=== PATIENT | male | born 1935 | race Caucasian/White ===

== ENCOUNTER 2016-08-11 09:41 | Inpatient (IN) | payer MEDICARE, OTHER ==
[2016-08-11] MEDS ORDERED: Sodium Chloride 0.9% 10 ML Syringe FLUSH PRN (10:02)
[2016-08-11] MEDS: Sodium Chloride 0.9% 2,000 ML IV SCH ×2 (10:11→11:15)
[2016-08-11] MEDS ORDERED: Levofloxacin/Dextrose 5%-Water 750 MG in Premix Bag 1 BAG IV ONE (11:27)
--- NOTE | 2016-08-11 11:48 | CT ---
Head CT Technique: Multiple axial sections through the brain were obtained. Intravenous contrast was not utilized. Comparison: No previous study. Findings: Ventricles along with basal cisterns and sulci over the convexities are moderately prominent. Diminished density noted within the periventricular and subcortical white matter as well as basal ganglia compatible with small vessel ischemic demyelination change. Small white matter infarct is noted within the left frontal region. No other abnormal parenchymal densities are seen. No evidence of intracranial hemorrhage. No midline shift or mass effect is seen. No discrete calvarial abnormality is seen. Soft tissue density is seen within a hypoplastic right mastoid sinus which I suspect is most likely chronic. Visualized paranasal sinuses are clear. Impression: 1. Senescent change as noted above. 2. Soft tissue density within a hypoplastic right mastoid sinus most likely chronic. 3. No acute intracranial abnormality is appreciated. Diagnostic code #2
--- NOTE | 2016-08-11 12:03 | CR ---
Chest: Two views of the chest were obtained. Comparison: No previous chest x-ray. Heart size is normal. Mild tortuosity of the thoracic aorta is seen. Lungs are clear but hyperinflated. Mild pectus excavatum deformity is present. Bony structures are otherwise unremarkable. Impression: 1. Probable emphysematous change. Nothing acute is seen. 2. Other incidental findings. Diagnostic code #2
[2016-08-11] MEDS ORDERED: Oseltamivir 75 MG Cap PO ONE (13:02)
[2016-08-11] MEDS ORDERED: ZINC OXIDE TOP PRN (13:52)
[2016-08-11] MEDS ORDERED: METHYLCELLULOSE PO PRN (13:52)
[2016-08-11] MEDS ORDERED: MENTHOL TOP PRN (13:52)
[2016-08-11] MEDS ORDERED: Bisacodyl 10 MG Supp RECTAL PRN (13:52)
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
[2016-08-11] MEDS: Sodium Chloride 0.9% 1,000 ML IV SCH (15:38)
[2016-08-11] MEDS ORDERED: Ibuprofen 600 MG Tab PO PRN (17:08)
[2016-08-11] MEDS ORDERED: Albuterol/Ipratropium 3.0-0.5 MG/3 ML Neb Soln NEB PRN (17:20)
[2016-08-11] MEDS: Carbidopa/Levodopa 25-100 MG Tab PO SCH ×2 (17:22→20:19)
[2016-08-11] MEDS: Oseltamivir 75 MG Cap PO SCH (20:19)
[2016-08-12] MEDS: Sodium Chloride 0.9% 1,000 ML IV SCH ×2 (04:33→18:08)
[2016-08-12] MEDS ORDERED: Magnesium Sulfate/Water 2 GM in Premix Bag 1 BAG IV ONE (07:30)
[2016-08-12] MEDS: Enoxaparin 40 MG/0.4 ML Syringe SUBCUT SCH (09:21)
[2016-08-12] MEDS: Carbidopa/Levodopa 25-100 MG Tab PO SCH ×4 (09:21→22:04)
[2016-08-12] MEDS: Oseltamivir 75 MG Cap PO SCH ×2 (09:22→22:05)
--- NOTE | 2016-08-12 13:01 | CR ---
Chest: Portable view of the chest was obtained. Comparison: Previous chest x-ray of 08/11/16. Heart size is normal. Tortuous thoracic aorta is seen. Lungs are clear with no acute infiltrates. Bony structures are grossly intact. Impression: 1. Nothing acute is appreciated on portable chest x-ray. Diagnostic code #2
--- NOTE | 2016-08-12 13:11 | US ---
Bilateral lower extremity deep venous ultrasound: Duplex and color flow imaging was obtained of the right and left common femoral, superficial femoral, popliteal, posterior tibial and peroneal veins. Normal phasic flow, augmentation and compression. Popliteal cyst noted on the left side measuring 2.3 cm. Lymph node noted within the left groin which has a normal ultrasound appearance. Impression: 1. No findings of deep venous thrombosis within either the right or left lower extremity. 2. Small popliteal cyst on the left side. Diagnostic code #2
[2016-08-12] MEDS ORDERED: Azithromycin 500 MG in Sodium Chloride 0.9% 250 ML IV SCH ×2 (14:00→15:30)
[2016-08-12] MEDS ORDERED: cefTRIAXone 1 GM in Sodium Chloride 0.9% 100 ML IV SCH (15:00)
[2016-08-12] MEDS ORDERED: METHYLCELLULOSE PO PRN (15:07)
[2016-08-12] MEDS ORDERED: Carbidopa/Levodopa 25-100 MG Tab PO SCH (21:00)
--- NOTE | 2016-08-13 08:27 | PCM.DCSUM1 ---
<Jigna Watson - Last Filed: 08/13/16 08:27> Discharge Summary - Hospital Course Free Text/Narrative:: The patient presents with a fever, hypotension, generalized weakness, and cough from [facility]. This all started a few days ago. The [facility] also reports he is not as active or alert as he normally is. He has a fever of 101.4. He has a cough but he says he has a chronic cough. He has no chest pain, shortness of breath, abdominal pain, nausea, vomiting or diarrhea. He has no dysuria. He has no headache. He has Parkinson's disease and that is why he is in the pen[facility]. Hospitalist service was consulted for further eval and admission for fever of unknown origin. - Discharge Data Discharge Date: 08/13/16 (admit date 08/11/16) Discharge Disposition: DC/Tfer to [facility] Condition: Good - Patient Summary/Data Operative Procedure(s) Performed: None Complications: None Consults: Consultations 08/11/16 13:36 Consult to Speech Language Pathology [DRAMA DIRECTOR Evaluation and Treatment] [CONS] Routine 08/11/16 13:37 Consult to Occupational Therapy [OT Evaluation and Treatment] [CONS] Routine Consult to Physical Therapy [PT Evaluation and Treatment] [CONS] Routine Labs Pending at D/C: None Recommended Follow-up Testing/Procedures: None Planned Operative Procedure(s) after DC: None Hospital Course: Patient was admitted for further workup of FUO. Negative findings and workup as follows: CXR, UA, flu, respiratory panel negative, mycoplasma, strep pneumonia. Negative urine culture and blood cultures. MRSA screening was positive however. He was treated prophylactically with tamiflu and zithromax. He was hydrated with IVF. He had an excellent response. He has been afebrile for the past 48 hours, strength is returned. He is ambulatory in the hallways with walker and stand by assist. He is anxious for dc home to [facility] today. He will be discharged on tamiflu and zithromax, no other medication changes, with follow up with PCP, Dr. Alvarez recommended in 5-[address] Alvarez will be called with discharge update today. - Patient Instructions Diet: Usual Diet as Tolerated (honey thick liquids), Drink 8-10+ Glasses/Day Activity: As Tolerated (with walker and assist; PT/OT/ST on discharge) Driving: Do Not Drive Showering/Bathing: May Shower Notify Provider of: Fever, Increased Pain, Nausea and/or Vomiting - Discharge Plan Prescriptions/Med Rec: Azithromycin [Zithromax] 250 mg PO Q24H #5 adv Oseltamivir Phosphate [IJD: Tamiflu] 75 mg PO BID #8 capsule Home Medications: Home Meds Carbidopa/Levodopa [Sinemet 25-100 mg] 2 tab PO QID 05/24/16 [History] Methylcellulose [Citrucel] 1 tbsp PO DAILY PRN 05/24/16 [History] Bisacodyl [Dulcolax] 1 dose RECTAL DAILY PRN 08/11/16 [History] Menthol/Zinc Oxide [Zinc-Oxyde Plus Ointment] 1 applic TOP BID PRN 08/11/16 [ History] Azithromycin [Zithromax] 250 mg PO Q24H #5 adv 08/13/16 [Rx] Oseltamivir Phosphate [IJD: Tamiflu] 75 mg PO BID #8 capsule 08/13/16 [Rx] Patient Handouts: Fever, Adult, [id number] Forms: ED Department Discharge Referrals: Dave Alvarez MD [Primary Care Provider] - - Discharge Summary/Plan Comment DC Time >30 min.: Yes (40 min) - General Info Date of Service: 08/13/16 Admission Dx/Problem (Free Text: Admission Diagnosis/Problem Admission Diagnosis/Problem Fever of unknown origin Arthur is seen this morning, doing very well. He has been afebrile for the past 48 hours; no known source of fever has been found; negative flu, negative mycoplasma, strep pneumo, negative CXR, negative UA, Lungs are clear this morning, satting >90% on RA. He is up ambulatory in the hallways with walker and assist. He is anxious to return to [facility] today. Functional Status: Reports: pain controlled, tolerating diet, ambulating, urinating. Denies: new symptoms - Review of Systems General: Reports: no symptoms HEENT: Reports: no symptoms Pulmonary: Reports: no symptoms, cough (minimal to no cough). Denies: shortness of breath, pleuritic chest pain, wheezing Cardiovascular: Reports: no symptoms. Denies: chest pain, palpitations, dyspnea on exertion Gastrointestinal: Reports: No symptoms. Denies: Abdominal pain Genitourinary: Reports: no symptoms. Denies: dysuria, frequency Musculoskeletal: Reports: no symptoms Skin: Reports: no symptoms Neurological: Reports: no symptoms, other (stiffness- baseline due to Parkinsons disease) Psychiatric: Reports: no symptoms - Patient Data Vitals - Most Recent: Last Vital Signs Temp 97.9 F 08/13/16 02:58 Pulse 60 08/13/16 02:58 Resp 14 08/13/16 02:58 BP 142/71 H 08/13/16 02:59 Pulse Ox 99 08/13/16 02:58 Weight - Most Recent: 68.447 kg I&O - Last 24 hours: Intake & Output 08/12/16 08/13/16 08/13/16 22:59 06:59 14:59 Intake Total 1078 1813 Output Total 500 Balance 578 1813 Lab Results - Last 24 hrs: Laboratory Results - last 24 hr 08/12/16 08/13/16 08/13/16 Range/Units 10:55 05:08 05:08 WBC 3.11 L (4.23-9.07) K/mm3 RBC 3.93 L (4.63-6.08) M/mm3 Hgb 12.0 L (13.7-17.5) gm/L Hct 36.6 L (40.1-51.0) % MCV 93.1 H (79.0-92.2) fl MCH 30.5 (25.7-32.2) pg MCHC 32.8 (32.2-35.5) g/dl RDW Std Deviation 44.3 H (35.1-43.9) fL Plt Count 101 L (163-337) K/mm3 MPV 11.9 (9.4-12.3) fl Neut % (Auto) 59.3 (34.0-67.9) % Lymph % (Auto) 24.4 (21.8-53.1) % Creek % (Auto) 12.5 H (5.3-12.2) % Eos % (Auto) 3.5 (0.8-7.0) Baso % (Auto) 0.3 (0.1-1.2) % Neut # 1.84 (1.78-5.38) K/mm3 Lymph # 0.76 L (1.32-3.57) K/mm3 Creek # 0.39 (0.30-0.82) K/mm3 Eos # 0.11 (0.04-0.54) K/mm3 Baso # 0.01 (0.01-0.08) K/mm3 D-Dimer, Quantitative 0.46 (0.19-0.59) mg/L Sodium 139 (136-145) mEq/L Potassium 3.8 (3.5-5.1) mEq/L Chloride 105 (98-107) mEq/L Carbon Dioxide 28 (21-32) mEq/L Anion Gap 9.8 (5-15) BUN 19 H (7-18) mg/dL Creatinine 0.7 (0.7-1.3) mg/dL Est Cr Clr Drug Dosing 77.41 mL/min Estimated GFR (MDRD) > 60 (>60) mL/min BUN/Creatinine Ratio 27.1 H (14-18) Glucose 82 (74-106) mg/dL Calcium 8.7 (8.5-10.1) mg/dL Magnesium 1.9 (1.8-2.4) mg/dl FARZAD Results - Last 24 hrs: Microbiology 08/11/16 15:40 Respiratory Virus Panel (PCR) (FARZAD) - Final Nasopharyngeal Swab 08/12/16 12:45 Streptococcus pneumoniae Antigen (M - Final Urine - Bladder 08/11/16 15:40 MRSA Surveillance Culture - Final Nasal/Axilla/Groin (Mrsa) Staphylococcus Aureus Med Orders - Current: Current Medications Albuterol/Ipratropium (Duoneb 3.0-0.5 Mg/3 Ml) 3 ml NEB QID PRN PRN Reason: Shortness of Breath Bisacodyl (Dulcolax) 10 mg RECTAL DAILY PRN PRN Reason: Constipation Calamine/Phenol (Calmoseptine) 0 gm TOP BID PRN PRN Reason: Rash Carbidopa/Levodopa (Sinemet 25-100 Mg) 2 tab PO QID [facility] Last Admin: 08/12/16 22:04 Dose: 2 tab Enoxaparin Sodium (Lovenox) 40 mg SUBCUT DAILY [facility] Last Admin: 08/12/16 09:21 Dose: 40 mg Sodium Chloride (Normal Saline) 1,000 mls @ 75 mls/hr IV ASDIRECTED [facility] Last Admin: 08/12/16 18:08 Dose: 75 mls/hr Ceftriaxone Sodium 1 gm/ (Sodium Chloride) 100 mls @ 200 mls/hr IV Q24H [facility] Last Admin: 08/12/16 14:50 Dose: 200 mls/hr Azithromycin 500 mg/ Sodium (Chloride) 250 mls @ 250 mls/hr IV Q24H [facility] Last Admin: 08/12/16 15:51 Dose: 250 mls/hr Ibuprofen (Motrin) 600 mg PO Q6H PRN PRN Reason: Fever Last Admin: 08/11/16 17:22 Dose: 600 mg Oseltamivir Phosphate (Tamiflu) 75 mg PO BID [facility] Stop: 08/16/16 12:00 Last Admin: 08/12/16 22:05 Dose: 75 mg Methylcellulose 907 (Gm) 0 each PO DAILY PRN PRN Reason: Constipation Saccharomyces Boulardii (Florastor) 500 mg PO DAILY [facility] Sodium Chloride (Saline Flush) 10 ml FLUSH ASDIRECTED PRN PRN Reason: Keep Vein Open Last Admin: 08/11/16 10:13 Dose: 10 ml Discontinued Medications Carbidopa/Levodopa (Sinemet 25-100 Mg) 2 tab PO QID [facility] Sodium Chloride (Normal Saline) 2,000 mls @ 1,000 mls/hr IV .BOLUS [facility] Last Admin: 08/11/16 11:15 Dose: 1,000 mls/hr Levofloxacin/Dextrose 750 mg/ (Premix) 150 mls @ 100 mls/hr IV ONETIME ONE Stop: 08/11/16 12:56 Last Admin: 08/11/16 11:46 Dose: 100 mls/hr Magnesium Sulfate 2 gm/ Premix 50 mls @ 25 mls/hr IV ONETIME ONE Stop: 08/12/16 09:29 Last Admin: 08/12/16 09:20 Dose: 25 mls/hr Azithromycin 500 mg/ Sodium (Chloride) 250 mls @ 250 mls/hr IV Q24H [facility] Last Admin: 08/12/16 14:36 Dose: Not Given Oseltamivir Phosphate (Tamiflu) 75 mg PO ONETIME ONE Stop: 08/11/16 13:03 Last Admin: 08/11/16 13:28 Dose: 75 mg Methylcellulose 907 (Gm) 0 each PO BID PRN PRN Reason: Constipation - Exam Quality Assessment: Reports: DVT prophylaxis General: Reports: alert, oriented, cooperative, no acute distress HEENT: Reports: Pupils equal, Pupils reactive, EOMI, Mucous membr. moist/pink Neck: Reports: supple Lungs: Reports: Clear to auscultation, Normal respiratory effort, Decreased breath sounds (to bases; no adventitous sounds) Cardiovascular: Reports: regular rate, regular rhythm, no murmurs Abdomen: Reports: bowel sounds present, soft, no tenderness, no distension (Male) Exam: Deferred Rectal (Males) Exam: Deferred Back Exam: Reports: normal inspection Extremities: Reports: no edema, no calf tenderness Skin: Reports: warm, dry, intact Psy/Mental Status: Reports: alert, normal affect, normal mood *Q Meaningful Use (DIS) - VTE *Q VTE Criteria *Q: - Stroke *Q Stroke Criteria *Q: - AMI *Q AMI Criteria *Q: <Dominique Shea - Last Filed: 08/13/16 15:37> Discharge Summary - Hospital Course Free Text/Narrative:: Empiric treatment for URI, bronchitis and Influenza; dc meds Tamiflu and Zithromax. - Discharge Diagnosis/Problem(s) (1) Fever of unknown origin SNOMED Code(s): 2319452 ICD Code: R50.9 - FEVER, UNSPECIFIED Status: Acute (2) Constipation SNOMED Code(s): 90552556 ICD Code: K59.00 - CONSTIPATION, UNSPECIFIED Status: Acute Qualifiers: Constipation type: other constipation type Qualified Code(s): K59.09 - Other constipation (3) Volume depletion SNOMED Code(s): 62281913 ICD Code: E86.9 - VOLUME DEPLETION, UNSPECIFIED Status: Acute - Patient Summary/Data Consults: Consultations 08/11/16 13:36 Consult to Speech Language Pathology [DRAMA DIRECTOR Evaluation and Treatment] [CONS] Routine 08/11/16 13:37 Consult to Occupational Therapy [OT Evaluation and Treatment] [CONS] Routine Consult to Physical Therapy [PT Evaluation and Treatment] [CONS] Routine - Patient Data Vitals - Most Recent: Last Vital Signs Temp 36.4 C 08/13/16 08:21 Pulse 55 L 08/13/16 08:21 Resp 14 08/13/16 08:21 BP 150/70 H 08/13/16 08:21 Pulse Ox 98 08/13/16 08:21 I&O - Last 24 hours: Intake & Output 08/13/16 08/13/16 08/13/16 06:59 14:59 22:59 Intake Total 1813 Balance 1813 Lab Results - Last 24 hrs: Laboratory Results - last 24 hr 08/13/16 08/13/16 Range/Units 05:08 05:08 WBC 3.11 L (4.23-9.07) K/mm3 RBC 3.93 L (4.63-6.08) M/mm3 Hgb 12.0 L (13.7-17.5) gm/L Hct 36.6 L (40.1-51.0) % MCV 93.1 H (79.0-92.2) fl MCH 30.5 (25.7-32.2) pg MCHC 32.8 (32.2-35.5) g/dl RDW Std Deviation 44.3 H (35.1-43.9) fL Plt Count 101 L (163-337) K/mm3 MPV 11.9 (9.4-12.3) fl Neut % (Auto) 59.3 (34.0-67.9) % Lymph % (Auto) 24.4 (21.8-53.1) % Creek % (Auto) 12.5 H (5.3-12.2) % Eos % (Auto) 3.5 (0.8-7.0) Baso % (Auto) 0.3 (0.1-1.2) % Neut # 1.84 (1.78-5.38) K/mm3 Lymph # 0.76 L (1.32-3.57) K/mm3 Creek # 0.39 (0.30-0.82) K/mm3 Eos # 0.11 (0.04-0.54) K/mm3 Baso # 0.01 (0.01-0.08) K/mm3 Sodium 139 (136-145) mEq/L Potassium 3.8 (3.5-5.1) mEq/L Chloride 105 (98-107) mEq/L Carbon Dioxide 28 (21-32) mEq/L Anion Gap 9.8 (5-15) BUN 19 H (7-18) mg/dL Creatinine 0.7 (0.7-1.3) mg/dL Est Cr Clr Drug Dosing 77.41 mL/min Estimated GFR (MDRD) > 60 (>60) mL/min BUN/Creatinine Ratio 27.1 H (14-18) Glucose 82 (74-106) mg/dL Calcium 8.7 (8.5-10.1) mg/dL Magnesium 1.9 (1.8-2.4) mg/dl FARZAD Results - Last 24 hrs: Microbiology 08/11/16 15:40 Respiratory Virus Panel (PCR) ([facility]) - Final Nasopharyngeal Swab 08/12/16 12:45 Streptococcus pneumoniae Antigen (M - Final Urine - Bladder 08/11/16 15:40 MRSA Surveillance Culture - Final Nasal/Axilla/Groin (Mrsa) Staphylococcus Aureus Med Orders - Current: Current Medications Discontinued Medications Albuterol/Ipratropium (Duoneb 3.0-0.5 Mg/3 Ml) 3 ml NEB QID PRN PRN Reason: Shortness of Breath Bisacodyl (Dulcolax) 10 mg RECTAL DAILY PRN PRN Reason: Constipation Calamine/Phenol (Calmoseptine) 0 gm TOP BID PRN PRN Reason: Rash Carbidopa/Levodopa (Sinemet 25-100 Mg) 2 tab PO QID [facility] Last Admin: 08/13/16 08:47 Dose: 2 tab Carbidopa/Levodopa (Sinemet 25-100 Mg) 2 tab PO QID [facility] Enoxaparin Sodium (Lovenox) 40 mg SUBCUT DAILY [facility] Last Admin: 08/13/16 08:47 Dose: 40 mg Sodium Chloride (Normal Saline) 2,000 mls @ 1,000 mls/hr IV .BOLUS [facility] Last Admin: 08/11/16 11:15 Dose: 1,000 mls/hr Levofloxacin/Dextrose 750 mg/ (Premix) 150 mls @ 100 mls/hr IV ONETIME ONE Stop: 08/11/16 12:56 Last Admin: 08/11/16 11:46 Dose: 100 mls/hr Sodium Chloride (Normal Saline) 1,000 mls @ 75 mls/hr IV ASDIRECTED [facility] Last Admin: 08/12/16 18:08 Dose: 75 mls/hr Magnesium Sulfate 2 gm/ Premix 50 mls @ 25 mls/hr IV ONETIME ONE Stop: 08/12/16 09:29 Last Admin: 08/12/16 09:20 Dose: 25 mls/hr Azithromycin 500 mg/ Sodium (Chloride) 250 mls @ 250 mls/hr IV Q24H [facility] Last Admin: 08/12/16 14:36 Dose: Not Given Ceftriaxone Sodium 1 gm/ (Sodium Chloride) 100 mls @ 200 mls/hr IV Q24H [facility] Last Admin: 08/12/16 14:50 Dose: 200 mls/hr Azithromycin 500 mg/ Sodium (Chloride) 250 mls @ 250 mls/hr IV Q24H [facility] Last Admin: 08/12/16 15:51 Dose: 250 mls/hr Ibuprofen (Motrin) 600 mg PO Q6H PRN PRN Reason: Fever Last Admin: 08/11/16 17:22 Dose: 600 mg Oseltamivir Phosphate (Tamiflu) 75 mg PO ONETIME ONE Stop: 08/11/16 13:03 Last Admin: 08/11/16 13:28 Dose: 75 mg Oseltamivir Phosphate (Tamiflu) 75 mg PO BID [facility] Stop: 08/16/16 12:00 Last Admin: 08/13/16 08:47 Dose: 75 mg Methylcellulose 907 (Gm) 0 each PO BID PRN PRN Reason: Constipation Methylcellulose 907 (Gm) 0 each PO DAILY PRN PRN Reason: Constipation Saccharomyces Boulardii (Florastor) 500 mg PO DAILY [facility] Last Admin: 08/13/16 08:47 Dose: 500 mg Sodium Chloride (Saline Flush) 10 ml FLUSH ASDIRECTED PRN PRN Reason: Keep Vein Open Last Admin: 08/11/16 10:13 Dose: 10 ml *Q Meaningful Use (DIS) - VTE *Q VTE Criteria *Q: - Stroke *Q Stroke Criteria *Q: - AMI *Q AMI Criteria *Q:
[2016-08-13 08:36] VITALS: BP 150/70
[2016-08-13] MEDS: Carbidopa/Levodopa 25-100 MG Tab PO SCH (08:47)
[2016-08-13] MEDS: Oseltamivir 75 MG Cap PO SCH (08:47)
[2016-08-13] MEDS: Enoxaparin 40 MG/0.4 ML Syringe SUBCUT SCH (08:47)
[2016-08-13] MEDS ORDERED: Saccharomyces Boulardii (Probiotic) 250 MG Cap PO SCH (09:00)
--- NOTE | 2016-08-13 15:36 | PCM.PN ---
- General Info Functional Status: Reports: tolerating diet, urinating - Review of Systems General: Reports: weakness HEENT: Reports: no symptoms Pulmonary: Reports: cough Cardiovascular: Reports: no symptoms Gastrointestinal: Reports: No symptoms Genitourinary: Reports: no symptoms Musculoskeletal: Reports: no symptoms Skin: Reports: no symptoms Neurological: Reports: no symptoms Psychiatric: Reports: no symptoms - Patient Data Vitals - most recent: Last Vital Signs Temp 36.4 C 08/13/16 08:21 Pulse 55 L 08/13/16 08:21 Resp 14 08/13/16 08:21 BP 150/70 H 08/13/16 08:21 Pulse Ox 98 08/13/16 08:21 Weight - most recent: 66.678 kg I&O - last 24 hours: Intake & Output 08/13/16 08/13/16 08/13/16 06:59 14:59 22:59 Intake Total 1813 Balance 1813 Lab Results last 24 hrs: Laboratory Results - last 24 hr 08/13/16 08/13/16 Range/Units 05:08 05:08 WBC 3.11 L (4.23-9.07) K/mm3 RBC 3.93 L (4.63-6.08) M/mm3 Hgb 12.0 L (13.7-17.5) gm/L Hct 36.6 L (40.1-51.0) % MCV 93.1 H (79.0-92.2) fl MCH 30.5 (25.7-32.2) pg MCHC 32.8 (32.2-35.5) g/dl RDW Std Deviation 44.3 H (35.1-43.9) fL Plt Count 101 L (163-337) K/mm3 MPV 11.9 (9.4-12.3) fl Neut % (Auto) 59.3 (34.0-67.9) % Lymph % (Auto) 24.4 (21.8-53.1) % [place] % (Auto) 12.5 H (5.3-12.2) % Eos % (Auto) 3.5 (0.8-7.0) Baso % (Auto) 0.3 (0.1-1.2) % Neut # 1.84 (1.78-5.38) K/mm3 Lymph # 0.76 L (1.32-3.57) K/mm3 [place] # 0.39 (0.30-0.82) K/mm3 Eos # 0.11 (0.04-0.54) K/mm3 Baso # 0.01 (0.01-0.08) K/mm3 Sodium 139 (136-145) mEq/L Potassium 3.8 (3.5-5.1) mEq/L Chloride 105 (98-107) mEq/L Carbon Dioxide 28 (21-32) mEq/L Anion Gap 9.8 (5-15) BUN 19 H (7-18) mg/dL Creatinine 0.7 (0.7-1.3) mg/dL Est Cr Clr Drug Dosing 77.41 mL/min Estimated GFR (MDRD) > 60 (>60) mL/min BUN/Creatinine Ratio 27.1 H (14-18) Glucose 82 (74-106) mg/dL Calcium 8.7 (8.5-10.1) mg/dL Magnesium 1.9 (1.8-2.4) mg/dl Ted Results last 24 hrs: Microbiology 08/11/16 15:40 Respiratory Virus Panel (PCR) (TED) - Final Nasopharyngeal Swab 08/12/16 12:45 Streptococcus pneumoniae Antigen (M - Final Urine - Bladder 08/11/16 15:40 MRSA Surveillance Culture - Final Nasal/Axilla/Groin (Mrsa) Staphylococcus Aureus Med Orders - Current: Current Medications Discontinued Medications Albuterol/Ipratropium (Duoneb 3.0-0.5 Mg/3 Ml) 3 ml NEB QID PRN PRN Reason: Shortness of Breath Bisacodyl (Dulcolax) 10 mg RECTAL DAILY PRN PRN Reason: Constipation Calamine/Phenol (Calmoseptine) 0 gm TOP BID PRN PRN Reason: Rash Carbidopa/Levodopa (Sinemet 25-100 Mg) 2 tab PO QID [facility] Last Admin: 08/13/16 08:47 Dose: 2 tab Carbidopa/Levodopa (Sinemet 25-100 Mg) 2 tab PO QID [facility] Enoxaparin Sodium (Lovenox) 40 mg SUBCUT DAILY [facility] Last Admin: 08/13/16 08:47 Dose: 40 mg Sodium Chloride (Normal Saline) 2,000 mls @ 1,000 mls/hr IV .BOLUS [facility] Last Admin: 08/11/16 11:15 Dose: 1,000 mls/hr Levofloxacin/Dextrose 750 mg/ (Premix) 150 mls @ 100 mls/hr IV ONETIME ONE Stop: 08/11/16 12:56 Last Admin: 08/11/16 11:46 Dose: 100 mls/hr Sodium Chloride (Normal Saline) 1,000 mls @ 75 mls/hr IV ASDIRECTED [facility] Last Admin: 08/12/16 18:08 Dose: 75 mls/hr Magnesium Sulfate 2 gm/ Premix 50 mls @ 25 mls/hr IV ONETIME ONE Stop: 08/12/16 09:29 Last Admin: 08/12/16 09:20 Dose: 25 mls/hr Azithromycin 500 mg/ Sodium (Chloride) 250 mls @ 250 mls/hr IV Q24H [facility] Last Admin: 08/12/16 14:36 Dose: Not Given Ceftriaxone Sodium 1 gm/ (Sodium Chloride) 100 mls @ 200 mls/hr IV Q24H [facility] Last Admin: 08/12/16 14:50 Dose: 200 mls/hr Azithromycin 500 mg/ Sodium (Chloride) 250 mls @ 250 mls/hr IV Q24H [facility] Last Admin: 08/12/16 15:51 Dose: 250 mls/hr Ibuprofen (Motrin) 600 mg PO Q6H PRN PRN Reason: Fever Last Admin: 08/11/16 17:22 Dose: 600 mg Oseltamivir Phosphate (Tamiflu) 75 mg PO ONETIME ONE Stop: 08/11/16 13:03 Last Admin: 08/11/16 13:28 Dose: 75 mg Oseltamivir Phosphate (Tamiflu) 75 mg PO BID [facility] Stop: 08/16/16 12:00 Last Admin: 08/13/16 08:47 Dose: 75 mg Methylcellulose 907 (Gm) 0 each PO BID PRN PRN Reason: Constipation Methylcellulose 907 (Gm) 0 each PO DAILY PRN PRN Reason: Constipation Saccharomyces Boulardii (Florastor) 500 mg PO DAILY [facility] Last Admin: 08/13/16 08:47 Dose: 500 mg Sodium Chloride (Saline Flush) 10 ml FLUSH ASDIRECTED PRN PRN Reason: Keep Vein Open Last Admin: 08/11/16 10:13 Dose: 10 ml - Exam Quality Assessment: DVT prophylaxis General: alert, oriented, cooperative, no acute distress HEENT: Pupils equal, Pupils reactive, EOMI Neck: supple, trachea midline Lungs: Normal respiratory effort, Decreased breath sounds Cardiovascular: regular rate, regular rhythm Abdomen: bowel sounds present, soft, no tenderness, no distension (Male) Exam: Deferred Back Exam: normal inspection Extremities: normal pulses Skin: warm Neurological: normal speech Psy/Mental Status: alert - Problem List & Annotations (1) Fever of unknown origin SNOMED Code(s): 8503947 Code(s): R50.9 - FEVER, UNSPECIFIED Status: Acute (2) Constipation SNOMED Code(s): 63216677 Code(s): K59.00 - CONSTIPATION, UNSPECIFIED Status: Acute Qualifiers: Constipation type: other constipation type Qualified Code(s): K59.09 - Other constipation (3) Volume depletion SNOMED Code(s): 44586359 Code(s): E86.9 - VOLUME DEPLETION, UNSPECIFIED Status: Acute - Problem List Review Problem List Initiated/Reviewed/Updated: Yes - Plan Plan:: Impression/Plan: Febrile Illness Negative Influenza screen Unremarkable infectious work up Query Bronchitis Bilateral LE Pain; negative venous doppler Dehydration Chronic cough Parkinson's Disease IVF Empiric Tamiflu Empiric Zithromax Venous doppler re: LE pain DVT/GI prophylaxis
== END 2016-08-13 10:50 | DRG 864 ==
LOC: JD.ED 09:41 → SUPCPDRO 09:41 → JD.MS 12:41
PROVIDERS: ADMIT Internal Medicine Cardiovascular Disease; ATTEND Internal Medicine Cardiovascular Disease
DX: R50.9 Fever, unspecified (principal); A49.02 Methicillin resistant Staphylococcus aureus infection, unspecified site; E86.9 Volume depletion, unspecified; K59.00 Constipation, unspecified; M79.605 Pain in left leg; M79.604 Pain in right leg; Z88.8 Allergy status to other drugs, medicaments and biological substances; G20 Parkinson's disease; R05 Cough; Z86.73 Personal history of transient ischemic attack (TIA), and cerebral infarction without residual deficits; H91.90 Unspecified hearing loss, unspecified ear; Z87.891 Personal history of nicotine dependence; Z79.899 Other long term (current) drug therapy; Z88.6 Allergy status to analgesic agent; R41.0 Disorientation, unspecified
CPT/HCPCS: 36415; 70450; 71020; 80053; 81001; 83605; 85025; 87040 ×2; 87086; 87804 ×2; 96361; 96365; 99285; J1956; J7040 ×2; J7050; 71010; 71010-26; 80048; 83735; 85379; 87486; 87502; 87503; 87581; 87633; 87798; 87899; 92526-GN; 92610-GN; 93970; 93970-26; 96366; 97110-GP; 97161-GP; 97165-GO; 97535-GO; A9270-GY; J0456; J0696; J1650; J3475; J7030

== ENCOUNTER 2017-08-22 15:23 | Emergency (ER) | payer MEDICARE, OTHER ==
[2017-08-22] MEDS ORDERED: Sodium Chloride 0.9% 500 ML IV ONE (16:03)
--- NOTE | 2017-08-22 16:09 | EDM.PDOC ---
ED HPI GENERAL MEDICAL PROBLEM - General Chief Complaint: Neurological Problem Stated Complaint: BROUGHT BY KULWANT Time Seen by Provider: 08/22/17 15:43 Source of Information: Reports: Patient, Family History Limitations: Reports: Altered Mental Status (Confused) - History of Present Illness INITIAL COMMENTS - FREE TEXT/NARRATIVE: Patient is 82-year-old male from local [facility] with history of Parkinson's disease who has been experiencing fever off-and-on for the past few days. As of today patient was resting in bed and fell out injuring his left hip and left elbow. Patient has had altered LOC since Tuesday. Wants to sleep all the time. Appetite is poor. Has had no cough, runny nose, sore throat, shortness of breath , chest pain, abdominal pain, diarrhea, or pain with urination per nursing staff. Patient did not receive the influenza vaccination. - Related Data Allergies Allergy/AdvReac Type Severity Reaction Status Date / Time acetaminophen [From Tylenol] Allergy Cannot Verified 08/22/17 15:36 Remember Home Meds: Home Meds Carbidopa/Levodopa [Sinemet 25-100 mg] 2 tab PO QID 05/24/16 [History] Bisacodyl [Dulcolax] 1 dose RECTAL DAILY PRN 08/11/16 [History] Calcium Polycarbophil [Fibercon] 1 tab PO DAILY 08/22/17 [History] Polyvinyl Alcohol/Povidone [Artificial Tears Drops] 1 drop EYEBOTH ASDIRECTED [History] Polyvinyl Alcohol/Povidone [Refresh] 1 drop EYEBOTH QAM 08/22/17 [History] Vit A,C & E/Lutein/Minerals [Healthy Eyes] 1 tab PO DAILY 08/22/17 [History] rOPINIRole HCl [Requip] 0.25 mg PO TID 08/22/17 [History] Past Medical History HEENT History: Reports: Hard of Hearing, Impaired Vision Respiratory History: Reports: Sleep Apnea Gastrointestinal History: Reports: Chronic Constipation Genitourinary History: Reports: Other (See Below) Other Genitourinary History: TURP 8 YEARS Musculoskeletal History: Reports: Other (See Below) Other Musculoskeletal History: 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 ED EXAM, NEURO - Physical Exam Exam: See Below Exam Limited By: No Limitations General Appearance: Lethargic Eye Exam: Bilateral Eye: EOMI, PERRL Ears: Hearing Grossly Normal Nose: Normal Inspection Throat/Mouth: Normal Voice, No Airway Compromise, Other (Oral mucosa is quite dry.) Neck: Normal Inspection, Supple, Non-Tender, Full Range of Motion Respiratory/Chest: No Respiratory Distress, Lungs Clear, Normal Breath Sounds, No Accessory Muscle Use, Chest Non-Tender Cardiovascular: Normal Peripheral Pulses, Extra Beats GI/Abdominal: Normal Bowel Sounds, Soft, Non-Tender, No Organomegaly, No Distention Neurological: Other (Lethargic, with questioning patient does at times answer questions when asked. Appropriate per daughter.) Back Exam: Normal Inspection. No: CVA Tenderness (L), CVA Tenderness (R) Extremities: Other (Pain noted to the left hip with palpation and also distal femur. No swelling, bruising, bony abnormalities. Pain noted to the left elbow with some mild swelling. No bony abdomen abnormalities noted. Skin tear present. No pain on examination with additional examinations of extremities. ) Skin Exam: Warm, Dry, Normal Color, No Rash Course - Vital Signs Last Recorded V/S: Last Vital Signs Temp 100.3 F 08/22/17 19:25 Pulse Resp BP Pulse Ox - Orders/Labs/Meds Orders: Active Orders 24 hr Category Date Time Status EKG 12 Lead [EKG Documentation Completion] [RC] STAT Care 08/22/17 16:00 Active Chest 1V Frontal [CR] Stat Exams 08/22/17 15:59 Taken Elbow 2V Lt [CR] Stat Exams 08/22/17 16:08 Taken Femur Min 2V Lt [CR] Stat Exams 08/22/17 16:01 Taken Head wo Cont [CT] Stat Exams 08/22/17 16:04 Taken CULTURE BLOOD [BC] Stat Lab 08/22/17 16:51 Received CULTURE BLOOD [BC] Stat Lab 08/22/17 17:01 Received Blood Culture x2 Reflex Set [OM.PC] Stat Oth 08/22/17 16:00 Ordered Labs: Laboratory Tests 08/22/17 08/22/17 08/22/17 Range/Units 16:45 17:01 17:01 WBC 7.36 (4.23-9.07) K/mm3 RBC 4.45 L (4.63-6.08) M/mm3 Hgb 13.6 L (13.7-17.5) gm/L Hct 41.8 (40.1-51.0) % MCV 93.9 H (79.0-92.2) fl MCH 30.6 (25.7-32.2) pg MCHC 32.5 (32.2-35.5) g/dl RDW Std Deviation 44.0 H (35.1-43.9) fL Plt Count 112 L (163-337) K/mm3 MPV 11.5 (9.4-12.3) fl Neut % (Auto) 76.3 H (34.0-67.9) % Lymph % (Auto) 10.6 L (21.8-53.1) % [place] % (Auto) 10.2 (5.3-12.2) % Eos % (Auto) 2.3 (0.8-7.0) Baso % (Auto) 0.3 (0.1-1.2) % Neut # (Auto) 5.62 H (1.78-5.38) K/mm3 Lymph # (Auto) 0.78 L (1.32-3.57) K/mm3 [place] # (Auto) 0.75 (0.30-0.82) K/mm3 Eos # (Auto) 0.17 (0.04-0.54) K/mm3 Baso # (Auto) 0.02 (0.01-0.08) K/mm3 PT 11.5 (8.0-13.0) SECONDS INR 1.07 APTT 25 (22-36) SECONDS Sodium (136-145) mEq/L Potassium (3.5-5.1) mEq/L Chloride (98-107) mEq/L Carbon Dioxide (21-32) mEq/L Anion Gap (5-15) BUN (7-18) mg/dL Creatinine (0.7-1.3) mg/dL Est Cr Clr Drug Dosing mL/min Estimated GFR (MDRD) (>60) mL/min BUN/Creatinine Ratio (14-18) Glucose (83-115) mg/dL Lactic Acid (0.4-2.0) mmol/L Calcium (8.5-10.1) mg/dL Total Bilirubin (0.2-1.0) mg/dL AST (15-37) U/L ALT (16-63) U/L Alkaline Phosphatase (46-116) U/L Troponin I (0.00-0.056) ng/mL C-Reactive Protein (<1.0) mg/dL Total Protein (6.4-8.2) g/dl Albumin (3.4-5.0) g/dl Globulin gm/dL Albumin/Globulin Ratio (1-2) TSH 3rd Generation (0.358-3.74) uIU/mL Urine Color Yellow (Yellow) Urine Appearance Clear (Clear) Urine pH 7.0 (5.0-8.0) Ur Specific [place] 1.025 (1.005-1.030) Urine Protein 1+ H (Negative) Urine Glucose (UA) Negative (Negative) Urine Ketones Trace H (Negative) Urine Occult Blood Negative (Negative) Urine Nitrite Negative (Negative) Urine Bilirubin Negative (Negative) Urine Urobilinogen 1.0 (0.2-1.0) Ur Leukocyte Esterase Negative (Negative) Urine RBC 0-5 (0-5) /hpf Urine WBC 0-5 (0-5) /hpf Ur Epithelial Cells 0-5 (0-5) /hpf Urine Bacteria Few (FEW) /hpf Urine Mucus Few (FEW) /hpf 08/22/17 08/22/17 Range/Units 17:01 17:01 WBC (4.23-9.07) K/mm3 RBC (4.63-6.08) M/mm3 Hgb (13.7-17.5) gm/L Hct (40.1-51.0) % MCV (79.0-92.2) fl MCH (25.7-32.2) pg MCHC (32.2-35.5) g/dl RDW Std Deviation (35.1-43.9) fL Plt Count (163-337) K/mm3 MPV (9.4-12.3) fl Neut % (Auto) (34.0-67.9) % Lymph % (Auto) (21.8-53.1) % [place] % (Auto) (5.3-12.2) % Eos % (Auto) (0.8-7.0) Baso % (Auto) (0.1-1.2) % Neut # (Auto) (1.78-5.38) K/mm3 Lymph # (Auto) (1.32-3.57) K/mm3 [place] # (Auto) (0.30-0.82) K/mm3 Eos # (Auto) (0.04-0.54) K/mm3 Baso # (Auto) (0.01-0.08) K/mm3 PT (8.0-13.0) SECONDS INR APTT (22-36) SECONDS Sodium 138 (136-145) mEq/L Potassium 3.8 (3.5-5.1) mEq/L Chloride 102 (98-107) mEq/L Carbon Dioxide 28 (21-32) mEq/L Anion Gap 11.8 (5-15) BUN 32 H (7-18) mg/dL Creatinine 1.1 (0.7-1.3) mg/dL Est Cr Clr Drug Dosing 52.60 mL/min Estimated GFR (MDRD) > 60 (>60) mL/min BUN/Creatinine Ratio 29.1 H (14-18) Glucose 95 (83-115) mg/dL Lactic Acid 1.8 (0.4-2.0) mmol/L Calcium 9.5 (8.5-10.1) mg/dL Total Bilirubin 0.7 (0.2-1.0) mg/dL AST 24 (15-37) U/L ALT 10 L (16-63) U/L Alkaline Phosphatase 74 (46-116) U/L Troponin I < 0.017 (0.00-0.056) ng/mL C-Reactive Protein 2.7 H* (<1.0) mg/dL Total Protein 7.6 (6.4-8.2) g/dl Albumin 3.8 (3.4-5.0) g/dl Globulin 3.8 gm/dL Albumin/Globulin Ratio 1.0 (1-2) TSH 3rd Generation 1.567 (0.358-3.74) uIU/mL Urine Color (Yellow) Urine Appearance (Clear) Urine pH (5.0-8.0) Ur Specific [place] (1.005-1.030) Urine Protein (Negative) Urine Glucose (UA) (Negative) Urine Ketones (Negative) Urine Occult Blood (Negative) Urine Nitrite (Negative) Urine Bilirubin (Negative) Urine Urobilinogen (0.2-1.0) Ur Leukocyte Esterase (Negative) Urine RBC (0-5) /hpf Urine WBC (0-5) /hpf Ur Epithelial Cells (0-5) /hpf Urine Bacteria (FEW) /hpf Urine Mucus (FEW) /hpf Meds: Medications Discontinued Medications Generic Name Dose Route Start Last Admin Trade Name Freq PRN Reason Stop Dose Admin Hydromorphone HCl 0.25 mg 08/22/17 17:48 08/22/17 17:54 Dilaudid IVPUSH 08/22/17 17:49 0.25 mg ONETIME ONE Administration Sodium Chloride 500 mls @ 250 mls/hr 08/22/17 16:03 08/22/17 16:45 Normal Saline IV 08/22/17 18:02 250 mls/hr ASDIRECTED ONE Administration Ibuprofen 600 mg 08/22/17 19:18 08/22/17 19:25 Motrin PO 08/22/17 19:19 600 mg ONETIME ONE Administration Lorazepam 0.5 mg 08/22/17 18:47 08/22/17 18:52 Ativan IVPUSH 08/22/17 18:48 0.5 mg ONETIME ONE Administration - Re-Assessments/Exams Free Text/Narrative Re-Assessment/Exam: IV established with normal saline 250 mL per hour for a total bolus of 500 mils. Patient appears to be quite dry on examination. Patient has a history of recent fevers and is on Tamiflu. No diagnosis of influenza. Patient fell today unwitnessed complaining of left-sided hip pain. Unclear the patient hit his head. He does have altered LOC per daughter who is present. Ordered CBC, chem 14, CRP, blood culture 2, coag studies, lactic acid, troponin , TSH, UA, an x-ray of the chest, fever, left hip, left elbow, also CT of the head without contrast. EKG first degree AV block at a rate [address] changes noted. Chest x-ray did not reveal any acute findings. This was reviewed with Dr. Denny. X-rays of the left elbow, left hip, and femur reviewed. No acute bony abnormalities noted. Final interpretation is pending. Reviewed with Dr. Denny. 08/22/17 17:29 CBC is the only lab that has resulted out. White blood cell count 7.36, hemoglobin 13.6, platelet count 112, neutrophil percent is 76.3, neutrophil #5.62. Chemistry panel came back with no concerning findings. Troponin less than 0.017. CRP 2.7. TSH normal. UA protein 1+ and Ketones trace. No concerns for infection. Influenza is pending. CT of the head impression: Mild generalized cerebral and cerebellar atrophy and chronic white matter ischemic changes. No acute intracranial abnormality. 1745 Nursing staff states patient is wanting to grab his penis and is confused. Nursing states the patient has significant irritation to the tip of the penis. Cream applied. Ordered Dilaudid 0.25 mg IVP. 08/22/17 17:49 Influenza screen was negative. Patient is not able to go home continues to have altered LOC. [address] Jackson he will speak with family and see patient in the E.D. 1841 Dr. Jackson spoke with family and they have come to the conclusion that patient does not require admission to the hospital at this time. He was admitted and discharged on August 13, 2016 for similar symptoms. He was diagnosed with fever of unknown etiology. Multiple tests were obtained with no significant findings. Will order Ativan 0.5 mg IVP to settle the patient down while in the ED. Follow-up with PCP and/or neurologist for modifications of meds if required. Will discharge patient home with instructions as documented. Departure - Departure Time of Disposition: 19:12 Disposition: DC/Tfer to [facility] Condition: Good Clinical Impression: Fever of unknown origin, Altered level of consciousness Dementia Qualifiers: Dementia type: unspecified type Dementia behavioral disturbance: without behavioral disturbance Qualified Code(s): F03.90 - Unspecified dementia without behavioral disturbance Contusion of hip, left Qualifiers: Encounter type: initial encounter Qualified Code(s): S70.02XA - Contusion of left hip, initial encounter Contusion of elbow, left Qualifiers: Encounter type: initial encounter Qualified Code(s): S50.02XA - Contusion of left elbow, initial encounter - Discharge Information Instructions: Fever, Adult, Altered Mental Status Referrals: Dave Alvarez MD [Primary Care Provider] - Forms: ED Department Discharge Additional Instructions: As discussed do not have a clear etiology to cause patient has had a fever and/ or why he has had mentation changes. No admission to the hospital required at this time. Follow-up with PCP this week or next week is required. Modification of medications currently taking may be required. At this point continue with all medications as prescribed. In addition patient has a yeast infection to the tip of the patient's penis. This will require clotrimazole topical 1% cream twice a day for 7 days. Follow-up with PCP for reevaluation. Return to the ED if he develops any new or worsening symptoms. - My Orders Last 24 Hours: My Active Orders 08/22/17 15:59 Chest 1V Frontal [CR] Stat 08/22/17 16:00 EKG 12 Lead [EKG Documentation Completion] [RC] STAT Blood Culture x2 Reflex Set [OM.PC] Stat 08/22/17 16:01 Femur Min 2V Lt [CR] Stat 08/22/17 16:04 Head wo Cont [CT] Stat 08/22/17 16:08 Elbow 2V Lt [CR] Stat 08/22/17 16:51 CULTURE BLOOD [BC] Stat 08/22/17 17:01 CULTURE BLOOD [BC] Stat - Assessment/Plan Last 24 Hours: My Active Orders 08/22/17 15:59 Chest 1V Frontal [CR] Stat 08/22/17 16:00 EKG 12 Lead [EKG Documentation Completion] [RC] STAT Blood Culture x2 Reflex Set [OM.PC] Stat 08/22/17 16:01 Femur Min 2V Lt [CR] Stat 08/22/17 16:04 Head wo Cont [CT] Stat 08/22/17 16:08 Elbow 2V Lt [CR] Stat 08/22/17 16:51 CULTURE BLOOD [BC] Stat 08/22/17 17:01 CULTURE BLOOD [BC] Stat
[2017-08-22] MEDS ORDERED: HYDROmorphone 0.5 MG/0.5 ML SYRINGE IVPUSH ONE (17:48)
[2017-08-22] MEDS ORDERED: LORazepam 2 MG/ML MDV IVPUSH ONE (18:47)
[2017-08-22] MEDS ORDERED: Ibuprofen 600 MG Tab PO ONE (19:18)
--- NOTE | 2017-08-23 07:05 | CR ---
Left elbow: Two views of the left elbow were obtained. Comparison: No prior elbow exam. 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 Spur noted off the olecranon process at the attachment of the triceps tendon compatible with stress reaction. Osteopenia is noted. No acute fracture or other abnormality is seen. Impression: 1. Incidental findings. Nothing acute is identified on two-view left elbow study. Diagnostic code #2
--- NOTE | 2017-08-23 07:06 | CT ---
Head CT Technique: Multiple axial sections through the brain were obtained. Intravenous contrast was not utilized. Comparison: Prior head CT exam of 08/11/16. Findings: Ventricles along with basal cisterns and sulci over the convexities are moderately prominent. Diminished density is noted within portions of periventricular and subcortical white matter as well as within the basal ganglia compatible with small vessel ischemic demyelination change. Small white matter infarct is identified within the left frontal lobe. No other abnormal parenchymal densities are seen. No evidence of intracranial hemorrhage or mass effect. Slight increased density is noted along the cerebellar tentorium and along the interhemispheric falx felt compatible with calcification. Bone window settings were reviewed which show the visualized sinuses to appear clear. No acute calvarial abnormality is appreciated. Impression: 1. Senescent change as noted above. 2. No acute intracranial abnormality is identified. No appreciable change is seen from previous head CT exam. Diagnostic code #2 I agree with preliminary report issued by [facility] ([facility] preliminary report dictated on 08/22/17, 6:26 PM Central Time)
--- NOTE | 2017-08-23 07:06 | CR ---
Chest: Frontal view of the chest was obtained. Comparison: Prior chest x-ray of 08/12/16. Heart size is normal. Mild tortuosity of the thoracic aorta is seen. Lungs are clear. Bony structures are grossly intact. Impression: 1. Nothing acute is identified on frontal chest x-ray. Diagnostic code #1
--- NOTE | 2017-08-23 07:06 | CR ---
Left femur: AP and lateral views of the left femur were obtained. Comparison: No prior femur study. Slight joint space narrowing is noted superiorly within the left hip. Minimal dystrophic calcifications are noted within the lateral left hip. Medial joint space narrowing is noted within the knee. Osteopenia is present. No acute abnormality is identified. Impression: 1. Mild degenerative change within the left knee and left hip. 2. Nothing acute is appreciated. Diagnostic code #2
== END 2017-08-22 20:18 ==
LOC: JD.ED 15:23
DX: S70.02XA Contusion of left hip, initial encounter (principal); S50.02XA Contusion of left elbow, initial encounter; F03.90 Unspecified dementia, unspecified severity, without behavioral disturbance, psychotic disturbance, mood disturbance, and anxiety; R40.4 Transient alteration of awareness; R50.9 Fever, unspecified; Z72.0 Tobacco use; Z79.899 Other long term (current) drug therapy; Z88.6 Allergy status to analgesic agent; W06.XXXA Fall from bed, initial encounter
CPT/HCPCS: 36415; 70450; 71045; 73070; 73552; 80053; 81001; 83605; 84443; 84484; 85025; 85610; 85730; 86140; 87040; 87804; 93005; 96361; 96374; 96375; 99285; A9270; J1170; J2060; J7040; 99284

== ENCOUNTER 2017-09-01 15:56 | Emergency (ER) | payer MEDICARE, OTHER ==
[2017-09-01 16:07] VITALS: BP 161/86
[2017-09-01] MEDS ORDERED: Sodium Chloride 0.9% 10 ML Syringe FLUSH PRN (16:34)
[2017-09-01] MEDS ORDERED: Morphine 4 MG/ML Syringe IVPUSH ONE (16:34)
[2017-09-01] MEDS ORDERED: Sodium Chloride 0.9% 1,000 ML IV SCH (16:45)
--- NOTE | 2017-09-01 17:07 | EDM.PDOC ---
ED HPI GENERAL MEDICAL PROBLEM - General Chief Complaint: Lower Extremity Injury/Pain Stated Complaint: [facility] Time Seen by Provider: 09/01/17 16:03 Source of Information: Reports: EMS, Family (Daughter), Penitentiary Records, RN Notes Reviewed - History of Present Illness INITIAL COMMENTS - FREE TEXT/NARRATIVE: 82 year old male transferred here from [facility] with diagnosis of left hip fracture. He is a [facility] resident. He fell l ast evening and then also fell 2 or 3 days ago. He was brought to the clinic for evaluation of left hip pain. X-rays taken at the clinic did show femoral neck fracture. Patient does have quite advanced Parkinson's disease and also advancing dementia presumably from Alzheimer's disease. Therefore he is not able to give any meaningful history. A daughter who is now present states that he had been walking somewhat okay presumably with the assistance of a walker up until about a week or 2 ago. Now in his confusion he is apparently trying to get up and walk at times and falling. There is no documentation for heart or known lung disease. He is not diabetic. He is not on any blood thinners at this time. - Related Data Allergies Allergy/AdvReac Type Severity Reaction Status Date / Time acetaminophen [From Tylenol] Allergy Cannot Verified 08/22/17 15:36 Remember Home Meds: Home Meds Carbidopa/Levodopa [Sinemet 25-100 mg] 2 tab PO QID 05/24/16 [History] Bisacodyl [Dulcolax] 1 dose RECTAL DAILY PRN 08/11/16 [History] Calcium Polycarbophil [Fibercon] 1 tab PO DAILY 08/22/17 [History] Polyvinyl Alcohol/Povidone [Artificial Tears Drops] 1 drop EYEBOTH ASDIRECTED [History] Polyvinyl Alcohol/Povidone [Refresh] 1 drop EYEBOTH QAM 08/22/17 [History] Vit A,C & E/Lutein/Minerals [Healthy Eyes] 1 tab PO DAILY 08/22/17 [History] rOPINIRole HCl [Requip] 0.25 mg PO TID 08/22/17 [History] Sennosides/Docusate Sodium [Senna Plus Tablet] 2 tab PO DAILY 09/01/17 [History] Past Medical History HEENT History: Reports: Hard of Hearing, Impaired Vision, Other (See Below) Other HEENT History: presbyopia, bilateral astigmatism, aphasia Respiratory History: Reports: Sleep Apnea Gastrointestinal History: Reports: Chronic Constipation, GERD, Other (See Below) Other Gastrointestinal History: bilateral inguinal hernia Genitourinary History: Reports: BPH, Other (See Below) Other Genitourinary History: TURP 8 YEARS Musculoskeletal History: Reports: Other (See Below) Other Musculoskeletal History: LIMITED MOVEMENT FROM STROKE WHEN HE WAS 36 YO Neurological History: Reports: CVA Social & Family History - Family History Family Medical History: Noncontributory - Tobacco Use Smoking Status *Q: Never Smoker Month Tobacco Last Used: 58 years Second Hand Smoke Exposure: No - Caffeine Use Caffeine Use: Reports: None - Recreational Drug Use Recreational Drug Use: No Review of Systems - Review of Systems Review Of Systems: Unable To Obtain ED EXAM, GENERAL - Physical Exam Exam: See Below General Appearance: Other (Awake but not answering questions for me in any meaningful way, he does attempt to talk but answers are brief and hard to understand) Eye Exam: Bilateral Eye: PERRL Ears: Normal External Exam Nose: Normal Inspection Throat/Mouth: Normal Inspection Head: Atraumatic Neck: Non-Tender Respiratory/Chest: No Respiratory Distress, Lungs Clear, Normal Breath Sounds Cardiovascular: Regular Rate, Rhythm GI/Abdominal: Soft, Non-Tender Extremities: Leg Pain (There is bruising of the left lateral hip and proximal lateral femur he does have pain with motion of the left lower extremity, leg is very mildly externally rotated), Other Neurological: Confused, Slow to Respond Skin Exam: Warm, Dry, Normal Color Course - Vital Signs Last Recorded V/S: Last Vital Signs Temp 97.3 F 09/01/17 16:03 Pulse 88 09/01/17 16:03 Resp 15 09/01/17 16:03 BP 161/86 H 09/01/17 16:03 Pulse Ox 97 09/01/17 16:03 - Orders/Labs/Meds Orders: Active Orders 24 hr Category Date Time Status Peripheral IV Care [RC] . DIRECTED Care 09/01/17 16:35 Active Sodium Chloride 0.9% [Normal Saline] 1,000 ml Med 09/01/17 16:45 Active IV ASDIRECTED Sodium Chloride 0.9% [Saline Flush] Med 09/01/17 16:34 Active 10 ml FLUSH ASDIRECTED PRN Peripheral IV Insertion Adult [OM.PC] Stat Oth 09/01/17 16:34 Ordered Medication Orders Sodium Chloride (Normal Saline) 1,000 mls @ 75 mls/hr IV ASDIRECTED JUVE Last Admin: 09/01/17 16:48 Dose: 75 mls/hr Sodium Chloride (Saline Flush) 10 ml FLUSH ASDIRECTED PRN PRN Reason: Keep Vein Open Last Admin: 09/01/17 16:50 Dose: 10 ml Labs: Laboratory Tests 09/01/17 09/01/17 09/01/17 Range/Units 16:46 16:46 16:46 WBC 8.84 (4.23-9.07) K/mm3 RBC 4.64 (4.63-6.08) M/mm3 Hgb 14.0 (13.7-17.5) gm/L Hct 43.1 (40.1-51.0) % MCV 92.9 H (79.0-92.2) fl MCH 30.2 (25.7-32.2) pg MCHC 32.5 (32.2-35.5) g/dl RDW Std Deviation 43.9 (35.1-43.9) fL Plt Count 221 (163-337) K/mm3 MPV 10.5 (9.4-12.3) fl Neut % (Auto) 72.5 H (34.0-67.9) % Lymph % (Auto) 15.2 L (21.8-53.1) % [place] % (Auto) 10.0 (5.3-12.2) % Eos % (Auto) 1.7 (0.8-7.0) Baso % (Auto) 0.3 (0.1-1.2) % Neut # (Auto) 6.41 H (1.78-5.38) K/mm3 Lymph # (Auto) 1.34 (1.32-3.57) K/mm3 [place] # (Auto) 0.88 H (0.30-0.82) K/mm3 Eos # (Auto) 0.15 (0.04-0.54) K/mm3 Baso # (Auto) 0.03 (0.01-0.08) K/mm3 PT 11.4 (8.0-13.0) SECONDS INR 1.06 Sodium 141 (136-145) mEq/L Potassium 4.1 (3.5-5.1) mEq/L Chloride 104 (98-107) mEq/L Carbon Dioxide 30 (21-32) mEq/L Anion Gap 11.1 (5-15) BUN 44 H (7-18) mg/dL Creatinine 1.1 (0.7-1.3) mg/dL Est Cr Clr Drug Dosing 48.11 mL/min Estimated GFR (MDRD) > 60 (>60) mL/min BUN/Creatinine Ratio 40.0 H (14-18) Glucose 109 (83-115) mg/dL Calcium 9.2 (8.5-10.1) mg/dL Total Bilirubin 0.6 (0.2-1.0) mg/dL AST 21 (15-37) U/L ALT 12 L (16-63) U/L Alkaline Phosphatase 88 (46-116) U/L Total Protein 7.5 (6.4-8.2) g/dl Albumin 3.4 (3.4-5.0) g/dl Globulin 4.1 gm/dL Albumin/Globulin Ratio 0.8 L (1-2) Meds: Medications Generic Name Dose Route Start Last Admin Trade Name Freq PRN Reason Stop Dose Admin Sodium Chloride 1,000 mls @ 75 mls/hr 09/01/17 16:45 09/01/17 16:48 Normal Saline IV 75 mls/hr ASDIRECTED JUVE Administration Sodium Chloride 10 ml 09/01/17 16:34 09/01/17 16:50 Saline Flush FLUSH 10 ml ASDIRECTED PRN Administration Keep Vein Open Discontinued Medications Generic Name Dose Route Start Last Admin Trade Name Freq PRN Reason Stop Dose Admin Morphine Sulfate 4 mg 09/01/17 16:34 09/01/17 16:49 Morphine IVPUSH 09/01/17 16:35 4 mg ONETIME ONE Administration - Re-Assessments/Exams Free Text/Narrative Re-Assessment/Exam: 09/01/17 18:11 X-rays pushed over from [facility] do show femoral neck fracture on the left. We do not have orthopedics consumer analyst at all this week. We did place a call to Dr Layton to see if he would have any interest in taking this patient. He is out of town for the week. We are transferring him to [facility] with his regular provider Dr Alvarez, [facility]. Dr Mcmanus, Orthopedist accepting Phys. Will be transferring by ground ambulance. Departure - Departure Time of Disposition: 17:50 Disposition: DC/Tfer to Acute Hospital 02 Condition: Serious Clinical Impression: Hip fracture, left Qualifiers: Encounter type: initial encounter Fracture type: closed Qualified Code(s): S72.002A - Fracture of unspecified part of neck of left femur, initial encounter for closed fracture - Discharge Information Forms: ED Department Discharge - My Orders Last 24 Hours: My Active Orders 09/01/17 16:34 Sodium Chloride 0.9% [Saline Flush] 10 ml FLUSH ASDIRECTED PRN Peripheral IV Insertion Adult [OM.PC] Stat 09/01/17 16:35 Peripheral IV Care [RC] . DIRECTED 09/01/17 16:45 Sodium Chloride 0.9% [Normal Saline] 1,000 ml IV ASDIRECTED - Assessment/Plan Last 24 Hours: My Active Orders 09/01/17 16:34 Sodium Chloride 0.9% [Saline Flush] 10 ml FLUSH ASDIRECTED PRN Peripheral IV Insertion Adult [OM.PC] Stat 09/01/17 16:35 Peripheral IV Care [RC] . DIRECTED 09/01/17 16:45 Sodium Chloride 0.9% [Normal Saline] 1,000 ml IV ASDIRECTED
== END 2017-09-01 18:29 ==
LOC: JD.ED 15:56
DX: S72.002A Fracture of unspecified part of neck of left femur, initial encounter for closed fracture (principal); Z88.6 Allergy status to analgesic agent; Z79.899 Other long term (current) drug therapy; W19.XXXA Unspecified fall, initial encounter
CPT/HCPCS: 36415; 80053; 85025; 85610; 96361; 96374; 99285; J2270; J7040; J7050